=== PATIENT | male | born 1955 | race Caucasian/White ===

== ENCOUNTER → 2020-08-12 | Outpatient (CLI) | payer BC ==
[~2020-08-12] MED LIST: ALEVE220 M1 PO; CENTRUM SILVER1 EAC7 PO; CLEOCIN HCL300 MG PO; GLUCOSAMINE1000 MG PO; LIPITOR 20 MG T20 M1 PO; ZYRTEC10 M5 PO
== END ==
LOC: LAB 08:07
PROVIDERS: ATTEND Orthopaedic Surgery
DX: Z01.812 Encounter for preprocedural laboratory examination (principal)

== ENCOUNTER 2020-08-18 06:07 | Observation (INO) | payer BC, OTHER ==
[2020-08-12 09:22] LABS: HEMATOCRIT 45.9 % (42.0-52.0); HEMOGLOBIN 15.8 gm/dL (14.0-18.0); MCH 31.3 pg (26.0-34.0); MCHC 34.4 g/dL (28.0-37.0); RBC 5.05 mil/uL (4.50-6.00); RDW 12.9 % (10.5-14.5); WBC 5.8 thou/uL (4.0-11.0)
[2020-08-12 09:23] LABS: URINE BILIRUBIN NEGATIVE (Negative); URINE BLOOD 1+ (Negative); URINE CLARITY CLEAR; URINE COLOR YELLOW; URINE GLUCOSE-RANDOM* NEGATIVE (Negative); URINE KETONES NEGATIVE (Negative); URINE LEUKOCYTES-REFLEX NEGATIVE (Negative); URINE NITRITE-REFLEX NEGATIVE (Negative); URINE PROTEIN (DIPSTICK) NEGATIVE (Negative); URINE SPECIFIC GRAVITY 1.015 (1.005-1.035); URINE UROBILINOGEN 0.2 E.U./dl (0.2-1.0)
[2020-08-12 09:30] LABS: ALBUMIN 3.8 g/dL (3.4-5.0); CALCIUM 9.3 mg/dL (8.5-10.1); CREATININE 1.2 mg/dL (0.7-1.3); POTASSIUM 4.3 mmol/L (3.5-5.1)
[2020-08-12 09:32] LABS: BACTERIA-REFLEX 1-9 Few /HPF (None Seen); CASTS None Seen /LPF (None Seen); CRYSTALS None Seen /LPF (None Seen); SQUAMOUS None Seen /LPF (0-3); URINE RBC 3-10 Few /HPF (0-2); URINE WBC-REFLEX None Seen /HPF (0-5)
[2020-08-12 09:37] LABS: PROTIME 10.9 Seconds (9.3-11.4)
[~2020-08-18] VITALS: Ht 172.7 cm; Wt 77.1 kg
--- NOTE | ~2020-08-18 | O ---
[facility] [place] [address] OPERATIVE REPORT Name: VICKI MOREJON Room #: 150-2 [facility] M..#: [id number] Admission: 08/18/20 Attend Phys: Tomas Willett MD Discharge: Date of : 59 Report #: [id number] THIS REPORT FOR: cc: Lester House Frederick A. DO Abraham,Tomas Duggan MD ~ DATE OF SERVICE: 08/18/2020 PREOPERATIVE DIAGNOSIS: Left knee osteoarthritis. POSTOPERATIVE DIAGNOSIS: Left knee osteoarthritis. PROCEDURE: Left total knee arthroplasty using Navio robotic assistance. SURGEON: Tomas Willett MD. ELECTRICAL MAINTENANCE MECHANIC: Katie Dixon PA-C. ANESTHESIA: LMA with an adductor canal block. IMPLANTS: Chairez and Nephew size 7 Oxinium Journey II BCS femur, size 5 tibia, size 10 polyethylene, size 35 patella. TOURNIQUET TIME: 62 minutes. ESTIMATED BLOOD LOSS: 25 mL. COMPLICATIONS: None. SPECIMENS: None. CONDITION UPON LEAVING THE OPERATING ROOM: Stable. INDICATIONS FOR PROCEDURE: The patient is a 64-year-old gentleman with left knee osteoarthritis. He had failed conservative measures for this. After discussion with him, he elected for left total knee arthroplasty. DESCRIPTION OF PROCEDURE: Risks, benefits, alternatives, complications were discussed in detail with the patient including but not limited to risk of anesthesia, risk of damage to nerves, arteries, blood vessels, risk for infection, bleeding, risk for continued knee pain, need for reoperation. Informed consent was obtained from the patient. Left knee was appropriately marked in the preoperative holding area. IV Ancef was given for preoperative antibiotics. He was brought to the operating room and placed in supine position on operating room table. LMA anesthesia was induced without complication. [address] [address] OPERATIVE REPORT Name: DARLEENVICKI Silvia Room #: 150-2 [facility] M..#: [id number] Admission: 08/18/20 Attend Phys: Tomas Willett MD Discharge: Date of : 59 Report #: [id number] Tourniquet was placed on the left thigh. Left lower extremity was prepped and draped in normal sterile fashion. Timeout was performed properly identifying the patient and procedure as well as the instrumentation and implants. All in the operating room were in agreement. Left lower extremity was exsanguinated, tourniquet was inflated. Tourniquet time was 62 minutes. Standard midline approach to knee was made with 10 blade through the skin. Dissection was taken down sharply to the fascia and deep flaps were developed medially and laterally. Fresh 10 blade was used to make a medial parapatellar arthrotomy and the knee was inspected. There was bevsiepz-no-rxmvpb tricompartmental osteoarthritis. ACL and PCL were removed sharply. Reference pins were placed in the femur and the tibia. The knee was then digitally mapped using the Clustrix robotic system. Intraoperative plan was made and we sized the size 7 femur with a size 5 tibia and a 10 spacer. After acceptance of the intraoperative plan, the distal femoral cut was made with Navio bur. Distal femoral cutting block was pinned in place and chamfer cuts were made. Attention was turned to the tibia. Remainder of the menisci removed with Bovie cautery. Tibial resection guide was pinned in place using Navio for placement and tibial resection was made. Flexion and extension gaps were checked and found to have good balance in flexion and extension both medially and laterally. Tibia was then sized, found to be a size 5. A size 5 tibial trial was placed, pinned and punched. A size 7 femoral trial was placed and the box cut was made. This was then trialed with a size 10 polyethylene. The size 10 polyethylene demonstrated good range of motion and stability with 1-1.5 millimeter laxity medially and laterally throughout range of motion of the knee. A 9 mm of bone was resected from the posterior surface of the patella and a size 35 patellar trial button was placed. Knee was taken through range of motion, found to be stable, found to have good patellar tracking. Trial components were removed. Bony ends were thoroughly irrigated with normal saline. Final size 5 tibia, size 7 Oxinium Journey II BCS femur and a size 35 patella were cemented in place using standard cementation techniques. While the cement cured, a periarticular injection consisting of morphine, ropivacaine, epinephrine, Toradol was placed around the knee joint capsule. After the cement cured, tourniquet was deflated. Hemostasis was obtained with Bovie cautery. A final size 10 polyethylene was placed. A gram of vancomycin was placed deep in the joint. Fascia was closed with 0 Vicryl, skin was closed with 2-0 Vicryl, 3-0 Monocryl. Dermabond and a ERNESTO dressing was applied. The patient tolerated this procedure well and went to recovery room under care of anesthesia postoperatively. By: [id number] Tomas Willett MD /nt
[2020-08-18 08:19] VITALS: BP 127/87
[2020-08-18 11:30] VITALS: BP 140/80
[2020-08-18 12:45] VITALS: BP 136/78
--- NOTE | 2020-08-18 14:24 | NUR ---
PT RECEIVED FROM REC RM AT 1120 ALERT AND IN NO PAIN. PT ASSESSED AND ORIENTED TO UNIT. DSNG DRY AND INTACT. ICE PACK TEDS AND SCD'S IN PLACE. ATE LUNCH AND HAD A BIT OF BRIEF NAUSEA WHEN FIRST UP FOR THERAPY. ZOFRAN GIVEN. DOING REHAB AT PRESENT TIME AND ANTICIPATES DISCHARGE THIS AFTERNOON.
[2020-08-18 16:50] VITALS: BP 114/69
--- NOTE | 2020-08-18 18:45 | NUR ---
PT RELEASED TO BE DISCHARGED HOME AFTER DOING THERAPY. BLADDER SCANNED PT AFTER FEW HOURS AND GOT 553MLS. PT VOIDED THREE DIFFERENT TIMES 100MLS EACH TIME. HE HAD DRANK SEVERAL DRINKS AND HAD IV FLUIDS. AMBULATED THE HALLS SEVERAL TIMES. OFFERED TO STRAIGHT CATH PT BUT HE REQUESTED TO WAIT UNTIL 1914 AT WHICH TIME IF HE DID NOT GO MORE HE WOULD ALLOW STR CATH. REPORT GIVEN TO NIGHT RN.
[2020-08-18 19:26] VITALS: BP 114/69
[2020-08-18 19:54] VITALS: BP 128/70
--- NOTE | 2020-08-18 20:09 | NUR ---
DISCHARGE EDUCATION PROVIDED. PAIN MEDS GIVEN FOR L KNEE PAIN RATED AT 2/10. PT VOIDED ANOTHER 200CC PRIOR TO D/C. DENIES ANY BLADDER DISCOMFORT. LEFT UNIT ACCOMPANIED BY AND SLEEP TECHNOLOGIST AT AROUND 2010 HRS.
== END 2020-08-18 20:10 | disposition home or self-care (01) ==
LOC: OR 06:07 → TBA 07:16 → OR 08:38 → 4S 10:01 → OR 10:01 → 4S 20:10
PROVIDERS: ADMIT Orthopaedic Surgery; ATTEND Orthopaedic Surgery
DX: M17.12 Unilateral primary osteoarthritis, left knee (principal); Z79.899 Other long term (current) drug therapy
CPT/HCPCS: 27447; S2900; 50010; 50101; 50415; 50954; 51130; 51225; 51320; 52001; 52282; 53000; 53078; 53365; 54118; 56527; 56528; 57095; 57103; 57110; 57127; 57180; 64042; 70005

== ENCOUNTER → 2020-09-17 | Day surgery (SDC) | payer BC, OTHER ==
[~2020-09-17] VITALS: Ht 172.7 cm; Wt 77.1 kg
[~2020-09-17] MED LIST changes: +NORCO5 PO
--- NOTE | ~2020-09-17 | O ---
[facility] [place] [address] OPERATIVE REPORT Name: VICKI MOREJON Room #: [facility].#: [id number] Admission: 09/17/20 Attend Phys: Tomas Willett MD Discharge: Date of : 59 Report #: [id number] THIS REPORT FOR: cc: Lester House Frederick A. DO Abraham, Scott M. MD ~ DOC #: [id number] Tomas Willett MD DATE OF SERVICE: 09/17/2020 PREOPERATIVE DIAGNOSIS: Arthrofibrosis, left total knee arthroplasty. POSTOPERATIVE DIAGNOSIS: Arthrofibrosis, left total knee arthroplasty. PROCEDURE: Left knee manipulation under anesthesia. SURGEON: Tomas Willett MD SPLUNK ARCHITECT: Katie Colón PA-C ANESTHESIA: LMA. ESTIMATED BLOOD LOSS: None. COMPLICATIONS: None. CONDITION UPON LEAVING OR: Stable. INDICATIONS FOR PROCEDURE: The patient is a 64-year-old gentleman who is about 4 weeks out from a left total knee arthroplasty ____ significant arthrofibrosis, maxing out of physical therapy with range of motion from 0-30 degrees. After discussion with him, he elected for manipulation under anesthesia. DESCRIPTION OF PROCEDURE: Risks, benefits, alternatives, and complications were discussed in detail with the patient including but not limited to risk of anesthesia, risk of damage to nerves, arteries, blood vessels, risk for intraoperative fracture, need for reoperation. Informed consent was obtained from the patient. Left knee was appropriately marked in the preoperative holding area. No antibiotics were given as this was a closed procedure. He was brought to the operating room and placed in the supine position on the operating room table. LMA anesthesia was induced without complication. Timeout was performed properly identifying the patient and procedure as well as instrumentation. All in the operating room in agreement. The knee was then passively examined and demonstrated 0-30 degrees of flexion passively. The knee was then manipulated with pressure on the proximal tibia was palpable and audible breakage of scar tissue. The final range of motion was from 0-95 [facility] [address] [place] [address] OPERATIVE REPORT Name: VICKI MOREJON Room #: REG [facility] M.R.#: [id number] Admission: 09/17/20 Attend Phys: Tomas Willett MD Discharge: Date of : 59 Report #: [id number]. Fluoroscopic imaging was brought in to verify that there was no intraoperative fracture as was the case. The patient was then awoken from anesthesia and went to the recovery room under care of anesthesia postoperatively. Tomas Willett MD SMA/ALL By: [id number] Tomas Willett MD /nt
[2020-09-17 16:07] VITALS: BP 158/75
== END | disposition home or self-care (01) ==
LOC: OR 10:44
PROVIDERS: ATTEND Orthopaedic Surgery
DX: M24.662 Ankylosis, left knee (principal); E78.00 Pure hypercholesterolemia, unspecified; Z98.890 Other specified postprocedural states; Z79.899 Other long term (current) drug therapy; Z96.641 Presence of right artificial hip joint; Z96.652 Presence of left artificial knee joint; Z20.822 Contact with and (suspected) exposure to COVID-19; Z88.8 Allergy status to other drugs, medicaments and biological substances
CPT/HCPCS: 50010; 50101; 62110; 62900; 70005